=== PATIENT | female | born 1995 | race Caucasian/White ===

== ENCOUNTER 2019-02-11 20:16 | Emergency (ER) | payer OTHER ==
[~2019-02-11] VITALS: Ht 149.9 cm; Wt 86.2 kg
[~2019-02-11 20:16] MED LIST: DOXYCYCLINE 10100 MG PO; KEFLEX500 MG PO; TRINATE TABLET1 TAB PO; TRIPLE ANTIBIOT28 G2 TP
[2019-02-11] MEDS ORDERED: CEPACOL SORE T1 EAC7 BUCCAL (21:13)
[2019-02-11] MEDS ORDERED: CEFDINIR300 MG PO (21:13)
[2019-02-11] MEDS ORDERED: MAGIC MOUTHWASH SW&SWALLOW (21:13)
[2019-02-11 21:20] VITALS: BP 119/62
== END 2019-02-11 21:21 | disposition home or self-care (01) ==
LOC: ER 20:16
DX: J02.0 Streptococcal pharyngitis (principal); Z88.0 Allergy status to penicillin; Z98.890 Other specified postprocedural states

== ENCOUNTER 2019-03-14 09:35 | Emergency (ER) | payer OTHER ==
[~2019-03-14] VITALS: Ht 149.9 cm; Wt 90.7 kg
[~2019-03-14 09:35] MED LIST changes: +CEFDINIR300 MG PO; +CEPACOL SORE T1 EAC7 BUCCAL; +MAGIC MOUTHWASH SW&SWALLOW
[2019-03-14 09:39] VITALS: BP 130/69
[2019-03-14] MEDS ORDERED: CLEOCIN HCL150 MG PO (10:29)
== END 2019-03-14 10:34 | disposition home or self-care (01) ==
LOC: ER 09:35
DX: J02.0 Streptococcal pharyngitis (principal); Z98.890 Other specified postprocedural states; Z88.0 Allergy status to penicillin

== ENCOUNTER 2019-06-06 11:40 | Emergency (ER) | payer OTHER ==
[~2019-06-06] VITALS: Ht 149.9 cm; Wt 86.2 kg
[~2019-06-06 11:40] MED LIST changes: +CLEOCIN HCL150 MG PO
[2019-06-06] MEDS ORDERED: AZITHROMYCIN 2250 MG PO (13:00)
[2019-06-06 13:06] VITALS: BP 130/76
== END 2019-06-06 13:27 | disposition home or self-care (01) ==
LOC: ER 11:40
DX: J02.0 Streptococcal pharyngitis (principal); Z98.890 Other specified postprocedural states; Z88.0 Allergy status to penicillin